=== PATIENT | male | born 1970 | race Caucasian/White ===

== ENCOUNTER 2020-01-15 15:54 | Outpatient (CLI) | payer OTHER, SELFPAY ==
--- NOTE | ~2020-01-15 | XR_ITS ---
EXAMINATION: XR chest 2V DATE: 01/15/2020 16:26 INDICATION: Midsternal chest pain. Shortness of breath. TECHNIQUE: Frontal and lateral views of the chest were obtained. COMPARISON: Chest 2 views 12/13/2016 FINDINGS: There is mild scarring at the lung apices. No pleural effusion or pneumothorax. The heart s ize is normal. There is mild chronic anterior wedging of multiple midthoracic vertebral bodies. IMPRESSION: 1. Mild scarring at the lung apices. Reviewed, dictated and finalized at location A. SERVICE TECHNICIAN
[2020-01-15 16:20] LABS: Basophils Absolute Auto 0.07 K/mm3 (0.00-0.10); Basophils Percent Auto 0.8 % (0.0-1.0); Eosinophils Absolute Auto 0.06 K/mm3 (0.02-0.50); Eosinophils Percent Auto 0.7 % (1.0-6.0); Hemoglobin 14.7 g/dL (14.0-18.0); Immature Granulocyte Absolute 0.02 K/mm3 (0.00-0.00); Immature Granulocyte Percent A 0.2 % (0.0-0.0); Lymphocytes Absolute Auto 2.53 K/mm3 (1.10-4.50); Lymphocytes Percent Auto 30.4 % (18.0-42.0); Mean Corpuscular HGB Conc 34.2 g/dL (32.0-36.0); Mean Corpuscular Hemoglobin 30.8 pg (27.0-31.0); Mean Corpuscular Volume 90.1 fL (78.0-102.0); Mean Platelet Volume 9.5 fl (8.7-11.0); Monocytes Absolute Auto 0.66 K/mm3 (0.10-0.90); Monocytes Percent Auto 7.9 % (2.0-11.0); Platelet Count Result 308 K/mm3 (150-420); Red Blood Count 4.77 M/mm3 (4.70-6.10); Red Cell Distribution Width 12.2 % (11.6-14.4); White Blood Count 8.3 K/mm3 (4.8-10.8)
[2020-01-15 16:22] LABS: Add Urine Microscopic? YES; Appearance Urine Clear (Clear); Bilirubin Urine 1+ (Negative); Blood Urine Negative (Negative); Color Urine Yellow (Yellow); Glucose Urine UA Negative (Negative); Ketones Urine Negative (Negative); Leukocyte Esterase Ur Negative (Negative); Nitrate Urine Negative (Negative); Protein Urine Negative (Negative); Specific Grav Ur >= 1.030 (1.010-1.020); Urobilinogen Urine 0.2 mg/dL (0.2-1.0); pH Urine 5.5 (5.0-8.0)
[2020-01-15 16:27] LABS: Bacteria Urine Trace /hpf; Mucus Urine Moderate /lpf; RBC Urine None seen /hpf (0-2); Squamous Epithelial Cell Urine Rare /hpf (Few); WBC Urine None seen /hpf (0-3)
[2020-01-15 16:35] LABS: D Dimer 0.19 mg/L (0.19-0.50)
[2020-01-15 16:45] LABS: Alanine Aminotransferase 21 U/L (16-63); Albumin Level 3.9 g/dL (3.4-5.0); Alkaline Phosphatase 72 U/L (46-116); Anion Gap 12.1 mmol/L (7-16); Aspartate Amino Transferase 14 U/L (15-37); Bilirubin,Total 0.4 mg/dL (0.00-1.00); Blood Urea Nitrogen 14 mg/dL (7-18); Calcium 8.3 mg/dL (8.5-10.1); Carbon Dioxide 30 mmol/L (21-32); Chloride 104 mmol/L (98-108); Creatine Kinase 260 U/L (39-308); Estimated Glomerular Filt Rate > 60; Glucose 110 mg/dL (70-99); Osmolality Calculated 295 mOsm/kg (285-295); Potassium 4.1 mmol/L (3.5-5.1); Sodium 142 mmol/L (136-145); Thyroid Stimulating Hormone 0.83 uIU/mL (0.36-3.74); Total Protein 6.9 g/dL (6.4-8.2)
[2020-01-15 17:01] LABS: Troponin I < 0.02 ng/mL (0.00-0.056)
[2020-01-15 17:02] LABS: CRP < 0.2 mg/dL (0.0-0.9)
[2020-01-15 18:04] LABS: Erythrocyte Sedimentation Rate 2 mm/hr (0-15)
== END 2020-01-15 15:55 | disposition home or self-care (01) ==
LOC: CHSLAB 15:58
PROVIDERS: PCP Family Medicine; Visit Provider Family Medicine
DX: R21 Rash and other nonspecific skin eruption (principal); R53.83 Other fatigue; R07.9 Chest pain, unspecified
CPT/HCPCS: 36415; 71046; 80053; 81001; 82550; 82553; 84443; 84484; 85025; 85380; 85652; 86038; 86140

== ENCOUNTER 2020-04-15 09:59 | Outpatient (CLI) | payer OTHER, SELFPAY ==
--- NOTE | ~2020-04-15 | US_ITS ---
US scrotum INDICATION: Right testicular swelling. Intermittent bilateral testicular pain. TECHNIQUE: Testicular sonogram utilizing grayscale and color Doppler FINDINGS: The testes are normal in size and appearance. No focal lesions are seen. The right testes measures 5 x 3.3 x 2.1 cm centimeters, and the left testis measures 5.2 x 2.7 x 2.5 cm cm. There is n ormal vascular flow to both testes. There are left epididymal cysts, largest measuring 4-5 mm. There is no varicocele or hydrocele. IMPRESSION: 1. Small left epididymal cysts, largest measuring 4-5 mm. Reviewed, dictated and finalized at location A.
--- NOTE | ~2020-04-15 | US_ITS ---
EXAMINATION: US soft tissue pelvic DATE: 04/15/2020 11:12 INDICATION: Left inguinal hernia. Left groin pain. TECHNIQUE: Multiple grayscale and Doppler ultrasound images of the abdomen were obtained. COMPARISON: None FINDINGS: There is a left inguinal hernia medial to the epigastric artery containing fat. IMPRESSION: 1. Direct left inguinal hernia containing fat. Reviewed, dictated and finalized at location A.
== END 2020-04-15 10:00 | disposition home or self-care (01) ==
PROVIDERS: PCP Family Medicine; Visit Provider Family Medicine
DX: K40.90 Unilateral inguinal hernia, without obstruction or gangrene, not specified as recurrent (principal); N50.811 Right testicular pain
CPT/HCPCS: 76857; 76870

== ENCOUNTER 2022-04-14 19:01 | Emergency (ER) | payer OTHER, SELFPAY ==
--- NOTE | ~2022-04-14 | CT_ITS ---
EXAMINATION: CT brain wo con INDICATION: Headache COMPARISON: None TECHNIQUE: Standard unenhanced head CT. The dose-length product (DLP) was 681.00 mGy-cm. The mA was a djusted according to patient size. Iterative reconstruction technique was employed. FINDINGS: There is no intracranial hemorrhage, acute infarction, or abnormal mass lesion. The ventric les are normal. There is no abnormal mass effect or midline shift. The cruz-white matter differentiat ion is normal. The basal cisterns are patent. The orbits are normal. There is moderate mucosal thicke josefina of the paranasal sinuses. IMPRESSION: 1. No acute intracranial abnormality. 2. Sinus disease. Reviewed, dictated and finalized at location F.
--- NOTE | ~2022-04-14 | XR_ITS ---
EXAMINATION: XR chest 1V portable INDICATION: Shortness of breath, cough TECHNIQUE: Portable AP chest at 2029 hours COMPARISON: 01/15/2020 FINDINGS: There is mild scarring of the lung apices. The lungs are free of acute opacities. There is no pleural effusion or pneumothorax. The cardiomediastinal silhouette is normal. IMPRESSION: 1. No acute cardiopulmonary abnormality. Reviewed, dictated and finalized at location F.
[2022-04-14 19:31] VITALS: BP 125/88; PULSE 97; RESP 17; TEMP 36.4; O2SAT 97
--- NOTE | 2022-04-14 20:04 | ECG_ITS ---
Measurements Intervals [place] Rate: 96 P: 78 DC: 155 QRS: 83 QRSD: 90 T: 72 QT: 345 QTc: 438 Interpretive Statements SINUS RHYTHM NO PREVIOUS ECG AVAILABLE FOR COMPARISON Electronically Signed On 04-14-2022 21:45:42 CDT by Fredrick Alfonso M.D.
[2022-04-14] MEDS: IPRATROPIUM 0.5 MG/ALBUTEROL SULFATE 2.5 MG AMPUL.NEB 3 ML INHALATION (20:18)
[2022-04-14 20:20] VITALS: PULSE 100; RESP 24; O2SAT 100
[2022-04-14 20:22] LABS: Base Excess ABG 2.9 mmol/L (0-2); Oxygen Content ABG 18.2 %vol (16.0-22.0); Oxygen Saturation ABG 97.5 % (95-97); Oxyhemoglobin 96.2 % (94-100); PCO2 ABG 34.8 mmHg (35-45); PO2 ABG 98.2 mmHg (80-90); Total Hemoglobin 13.4 g/dL (12.0-18.0); pH ABG 7.49 (7.35-7.45)
[2022-04-14 20:24] LABS: Device ROOM AIR; Modified Allen's Test Pass; Site Drawn LEFT RADIAL
[2022-04-14 20:25] LABS: Basophils Absolute Auto 0.05 K/mm3 (0.00-0.10); Basophils Percent Auto 0.4 % (0.0-1.0); Eosinophils Absolute Auto 0.14 K/mm3 (0.02-0.50); Hematocrit 38.2 % (40.0-54.0); Hemoglobin 12.7 g/dL (14.0-18.0); Immature Granulocyte Absolute 0.04 K/mm3 (0.00-0.00); Immature Granulocyte Percent A 0.3 % (0.0-0.0); Lymphocytes Absolute Auto 2.44 K/mm3 (1.10-4.50); Mean Corpuscular HGB Conc 33.2 g/dL (32.0-36.0); Mean Corpuscular Hemoglobin 30.4 pg (27.0-31.0); Mean Corpuscular Volume 91.4 fL (78.0-102.0); Mean Platelet Volume 9.6 fl (8.7-11.0); Monocytes Absolute Auto 1.32 K/mm3 (0.10-0.90); Monocytes Percent Auto 9.7 % (2.0-11.0); Neutrophils Absolute Auto 9.6 K/mm3 (1.7-7.2); Neutrophils Percent Auto 70.6 % (50.0-70.0); Platelet Count Result 317 K/mm3 (150-420); Red Blood Count 4.18 M/mm3 (4.70-6.10); Red Cell Distribution Width 12.7 % (11.6-14.4); White Blood Count 13.6 K/mm3 (4.8-10.8)
--- NOTE | 2022-04-14 20:29 | PC.NURSE ---
covid nasal swab sent to lab
[2022-04-14] MEDS: KETOROLAC 30 MG/ML VIAL (*BKC) IM (20:31)
[2022-04-14] MEDS: methylPREDNISolone SOD SUCC 125 MG VIAL IV PUSH (20:32)
[2022-04-14] MEDS: SODIUM CHLORIDE 0.9% IV 500 ML 999 ML IV CONT (20:32)
[2022-04-14 20:43] LABS: Lactic Acid Reflex 0.6 mmol/L (0.4-2.0)
[2022-04-14 20:52] LABS: Alanine Aminotransferase 18 U/L (16-63); Albumin Level 3.4 g/dL (3.4-5.0); Alkaline Phosphatase 107 U/L (46-116); Anion Gap 6 mmol/L (8-16); Aspartate Amino Transferase 11 U/L (15-37); Bilirubin,Total 0.5 mg/dL (0.00-1.00); Blood Urea Nitrogen 14 mg/dL (7-18); Calcium 8.2 mg/dL (8.5-10.1); Carbon Dioxide 27 mmol/L (21-32); Chloride 105 mmol/L (98-108); Estimated CRCL calculation 94 ml/min; Estimated Glomerular Filt Rate > 60; Glucose 132 mg/dL (70-99); Osmolality Calculated 288 mOsm/kg (285-295); Potassium 3.5 mmol/L (3.5-5.1); Sodium 138 mmol/L (136-145); Total Protein 6.4 g/dL (6.4-8.2); Troponin I 4.9 ng/L (0.00-60.4)
[2022-04-14 20:56] LABS: Ethanol < 3 mg/dL (0-6)
[2022-04-14 21:03] VITALS: BP 125/88; PULSE 98; RESP 16; O2SAT 98
[2022-04-14 21:13] LABS: Influenza A QL RT-PCR Negative (Negative); Influenza B QL RT-PCR Negative (Negative); SARS-CoV-2 RNA PCR Negative (Negative)
[2022-04-14 22:00] LABS: Add Urine Microscopic? NO; Appearance Urine Clear (Clear); Bilirubin Urine Negative (Negative); Blood Urine Negative (Negative); Color Urine Yellow (Yellow); Glucose Urine UA Negative (Negative); Ketones Urine Negative (Negative); Leukocyte Esterase Ur Negative (Negative); Nitrate Urine Negative (Negative); Protein Urine Negative (Negative); Specific Grav Ur 1.015 (1.010-1.020)
[2022-04-14 22:07] LABS: Amphetamine Screen Urine Positive (Negative); Barbiturate Screen Urine Negative (Negative); Benzodiazepines Screen Urine Negative (Negative); Cannabinoid Screen Urine Negative (Negative); Cocaine Screen Urine Negative (Negative); Methadone Screen Urine Negative (Negative); Opiate Screen Urine Negative (Negative); Phencyclidine Screen Urine Negative (Negative)
--- NOTE | 2022-04-14 22:17 | ED.HA ---
HPI - Headache General Chief Complaint: Headache Stated Complaint: swelling in face,sores on body Time Seen by Provider: 04/14/22 19:05 Source: patient and RN notes reviewed Mode of arrival: ambulatory Limitations: no limitations History of Present Illness MD elicited complaint: headache Onset (ago): day(s) (2) Onset description: gradually Location: generalized Severity: mild Pain scale (0-10): 5 Quality & Timing: aching and dull Exacerbating factors: none Relieving factors: nothing Associated symptoms: cough Treatments prior to arrival: none Related Data Allergies Allergy/AdvReac Type Severity Reaction Status Date / Time No Known Allergies Allergy Verified 04/14/22 19:30 Review of Systems Review of Systems: All systems reviewed & are unremarkable except as noted in HPI and below Constitutional: Constitutional: Reports no additional constitutional complaints Eyes: Eyes: Reports no additional eye complaints ENT: Reports system reviewed and no additional complaints, except as documented Cardiovascular: Cardiovascular: Reports no additional cardiovascular complaints Respiratory: Respiratory: Reports no additional respiratory complaints Gastrointestinal: Gastrointestinal: Reports no additional gastrointestinal complaints Musculoskeletal: Musculoskeletal: Reports no additional musculoskeletal complaints Integumentary/Breasts: Skin/Breast: Reports system reviewed and no additional complaints, except as docu Neurologic: Reports headache(s) Psychiatric: Psychiatric: Reports no additional psychiatric complaints Endocrine: Endocrine: Reports no additional endocrine complaints Hematologic/Lymphatic: Hematologic/Lymphatic: Reports no additional hematologic/lymphatic complaints Allergic/Immunologic: Allergic/Immunologic: Reports no additional allergic/immunologic complaints PMFSH Past Medical History Medical History Bronchitis Headache Sinusitis Viral syndrome Exam Const: General: no acute distress Nutritional Appearance: well nourished Orientation/consciousness: patient oriented x3 Limitations: no limitations HENMT: Head: normal to inspection Ears: external ears normal, TM's normal bilaterally and EAC's normal General nose exam: Normal external nose present and Normal nares present Face and sinus: normal facial exam and sinus tenderness Mouth: Yes Normal oral and palatal mucosa present and Yes moist mucous membranes Teeth and gingiva: dentition normal Throat: posterior oropharynx normal Eyes: Conjunctivae: conjunctivae normal Pupils: Equal, round and reactive pupils present EOM: EOMs intact bilaterally Neck: Neck: normal visual inspection, no lymphadenopathy and no meningeal signs Chest: Chest palpation & inspection: normal inspection of the chest Resp: Effort & Inspection: normal respiratory effort Auscultation: rhonchi Cardio: Rate: regular rate Rhythm: regular rhythm GI: GI Palp: Yes Soft to palpation and No Tenderness to palpation present (GI) Auscultation: normal bowel sounds : General: Yes bladder normal to palpation and Yes no CVA tenderness Back/Spine/Pelvis: Back: no CVA tenderness Skin: General skin exam: normal color Rashes: no rashes Wounds: no wounds Neuro: General: patient oriented x3, moves all extremities, no meningeal signs, no focal motor deficits and CN's II-XI intact bilaterally Cranial nerves: Yes Equal, round and reactive pupils present and Yes Nystagmus not present Speech: normal speech Gait exam (Neuro): Normal gait present Extrem: General: normal to inspection and no pedal edema Psych: Mental Status: mental status grossly normal Affect: normal affect Attitude: cooperative Course Course Emergency Course: Pt was stable in the ED, less painful and no acute SOB. Reevaluation(s) Reevaluation #1: VSS Date: 04/14/22 Time: 20:01 Vital Signs Vital signs: Vital Signs Temperature 36.4 C 06
[2022-04-14 23:14] VITALS: BP 125/93; PULSE 98; RESP 15; TEMP 36.6; O2SAT 97
== END 2022-04-14 23:16 | disposition home or self-care (01) ==
PROVIDERS: Emergency Provider Emergency Medicine
DX: R51.9 Headache, unspecified (principal); J32.9 Chronic sinusitis, unspecified; B34.9 Viral infection, unspecified; J40 Bronchitis, not specified as acute or chronic; Z20.822 Contact with and (suspected) exposure to COVID-19
CPT/HCPCS: 36415; 36600; 70450; 71045; 80053; 80307; 81003; 82805; 83605; 84484; 85025; 87502; 93005; 94640; 96361; 96365; 96372; 96375; 99284; C9803; J0696; J1885; J2930; J7040; U0003; U0005

== ENCOUNTER 2022-07-05 02:24 | Emergency (ER) | payer SELFPAY ==
[2022-07-05] VITALS (15 sets, daily range): BP systolic 99–110; BP diastolic 65–81; PULSE 75–92; RESP 12–18; TEMP 36.4; O2SAT 96–100
--- NOTE | ~2022-07-05 | XR_ITS ---
EXAMINATION: XR chest 1V portable DATE: 07/05/2022 03:14 INDICATION: Chest pain. TECHNIQUE: A single frontal view of the chest was obtained. COMPARISON: Chest single view 04/14/2022 FINDINGS: There is mild scarring in the upper lobes. No pleural effusion or pneumothorax. The heart s ize is normal. IMPRESSION: 1. Stable mild scarring in the upper lobes. Reviewed, dictated and finalized at location A.
--- NOTE | 2022-07-05 02:26 | ECG_ITS ---
Measurements Intervals [place] Rate: 86 P: 61 VA: 146 QRS: 82 QRSD: 102 T: 56 QT: 370 QTc: 443 Interpretive Statements SINUS RHYTHM NORMAL ECG COMPARED TO ECG 04/14/2022 20:14:33 NO SIGNIFICANT CHANGES Electronically Signed On 07-05-2022 16:07:16 CDT by Alo Vaughn M.D.
[2022-07-05] MEDS: SODIUM CHLORIDE 0.9% IV 500 ML 999 ML IV CONT (03:23)
[2022-07-05] MEDS: ASPIRIN 325 MG ENTERIC TABLET PO (03:24)
[2022-07-05] MEDS: ACETAMINOPHEN 325 MG TABLET 650 MG PO (03:24)
[2022-07-05 03:27] LABS: Basophils Absolute Auto 0.06 K/mm3 (0.00-0.10); Basophils Percent Auto 0.5 % (0.0-1.0); Eosinophils Absolute Auto 0.15 K/mm3 (0.02-0.50); Eosinophils Percent Auto 1.2 % (1.0-6.0); Hematocrit 37.2 % (40.0-54.0); Hemoglobin 12.4 g/dL (14.0-18.0); Immature Granulocyte Absolute 0.03 K/mm3 (0.00-0.00); Immature Granulocyte Percent A 0.2 % (0.0-0.0); Lymphocytes Absolute Auto 2.57 K/mm3 (1.10-4.50); Lymphocytes Percent Auto 21.3 % (18.0-42.0); Mean Corpuscular HGB Conc 33.3 g/dL (32.0-36.0); Mean Corpuscular Hemoglobin 30.2 pg (27.0-31.0); Mean Corpuscular Volume 90.5 fL (78.0-102.0); Mean Platelet Volume 9.8 fl (8.7-11.0); Monocytes Absolute Auto 1.19 K/mm3 (0.10-0.90); Monocytes Percent Auto 9.9 % (2.0-11.0); Neutrophils Absolute Auto 8.1 K/mm3 (1.7-7.2); Neutrophils Percent Auto 66.9 % (50.0-70.0); Platelet Count Result 286 K/mm3 (150-420); Red Blood Count 4.11 M/mm3 (4.70-6.10); Red Cell Distribution Width 13.1 % (11.6-14.4); White Blood Count 12.1 K/mm3 (4.8-10.8)
[2022-07-05 03:44] LABS: Alanine Aminotransferase 19 U/L (16-63); Albumin Level 3.5 g/dL (3.4-5.0); Alkaline Phosphatase 107 U/L (46-116); Anion Gap 6 mmol/L (8-16); Aspartate Amino Transferase 13 U/L (15-37); Bilirubin,Total 0.2 mg/dL (0.00-1.00); Blood Urea Nitrogen 9 mg/dL (7-18); Calcium 8.3 mg/dL (8.5-10.1); Carbon Dioxide 27 mmol/L (21-32); Chloride 105 mmol/L (98-108); Estimated Glomerular Filt Rate > 60; Glucose 123 mg/dL (70-99); Osmolality Calculated 285 mOsm/kg (285-295); Potassium 3.5 mmol/L (3.5-5.1); Sodium 138 mmol/L (136-145); Total Protein 6.2 g/dL (6.4-8.2); Troponin I 4.3 ng/L (0.00-60.4)
[2022-07-05 03:45] LABS: Lactic Acid Reflex 0.6 mmol/L (0.4-2.0)
--- NOTE | 2022-07-05 04:20 | ED.GENADULT ---
[facility] - General Adult General Chief complaint: Extremity Problem,Nontraumatic Stated complaint: chest pain Time Seen by Provider: 07/05/22 02:28 Source: patient and RN notes reviewed Mode of arrival: ambulatory Limitations: no limitations History of Present Illness MD complaint: chest pain Onset (ago): hour(s) (4) Location: chest Radiation: non-radiation Severity: mild Severity scale (1-10): 5 Quality: aching and dull Pain Consistency: constant Relieving factors: none Exacerbating factors: none Associated symptoms: chest pain Related Data Home Medications Medication Instructions Recorded Confirmed No Home Medications 07/05/22 07/05/22 Allergies Allergy/AdvReac Type Severity Reaction Status Date / Time No Known Allergies Allergy Verified 07/05/22 02:33 Review of Systems Review of Systems: All systems reviewed & are unremarkable except as noted in HPI and below Constitutional: Constitutional: Reports no additional constitutional complaints Eyes: Eyes: Reports no additional eye complaints ENT: Reports system reviewed and no additional complaints, except as documented Cardiovascular: Cardiovascular: Reports chest pain Respiratory: Respiratory: Reports no additional respiratory complaints Gastrointestinal: Gastrointestinal: Reports no additional gastrointestinal complaints Musculoskeletal: Musculoskeletal: Reports no additional musculoskeletal complaints Integumentary/Breasts: Skin/Breast: Reports system reviewed and no additional complaints, except as docu Neurologic: Reports system reviewed and no additional complaints, except as documented Psychiatric: Psychiatric: Reports no additional psychiatric complaints Endocrine: Endocrine: Reports no additional endocrine complaints Hematologic/Lymphatic: Hematologic/Lymphatic: Reports no additional hematologic/lymphatic complaints Allergic/Immunologic: Allergic/Immunologic: Reports no additional allergic/immunologic complaints PMFSH Past Medical History Medical History (Updated 07/11/22 @ 08:24 by Keith Farnsworth MD) Bronchitis Chest pain Headache Sinusitis Viral syndrome Exam Const: General: healthy appearing and no acute distress Nutritional Appearance: well nourished Orientation/consciousness: patient oriented x3 Limitations: no limitations HENMT: Head: normal to inspection Ears: external ears normal, TM's normal bilaterally and EAC's normal General nose exam: Normal external nose present and Normal nares present Face and sinus: normal facial exam and sinuses nontender Mouth: Yes Normal oral and palatal mucosa present and Yes moist mucous membranes Teeth and gingiva: dentition normal Throat: posterior oropharynx normal Eyes: Conjunctivae: conjunctivae normal Pupils: Equal, round and reactive pupils present EOM: EOMs intact bilaterally Neck: Neck: normal visual inspection, no lymphadenopathy and no meningeal signs Chest: Chest palpation & inspection: normal inspection of the chest Resp: Effort & Inspection: normal respiratory effort Auscultation: clear to auscultation bilaterally Cardio: Rate: regular rate Rhythm: regular rhythm GI: GI Palp: Yes Soft to palpation and No Tenderness to palpation present (GI) Auscultation: normal bowel sounds : General: Yes bladder normal to palpation and Yes no CVA tenderness Back/Spine/Pelvis: Back: no CVA tenderness Skin: General skin exam: normal color Rashes: no rashes Wounds: no wounds Neuro: General: patient oriented x3, moves all extremities, no meningeal signs, no focal motor deficits and CN's II-XI intact bilaterally Cranial nerves: Yes Equal, round and reactive pupils present and Yes Nystagmus not present Speech: normal speech Gait exam (Neuro): Normal gait present Extrem: General: normal to inspection and no pedal edema Psych: Mental Status: mental status grossly normal Affect: normal affect Attitude: cooperative Course Course Emergency Course: Pt was stable i
== END 2022-07-05 04:33 | disposition home or self-care (01) ==
PROVIDERS: Emergency Provider Emergency Medicine
DX: R07.9 Chest pain, unspecified (principal)
CPT/HCPCS: 36415; 71045; 80053; 83605; 84484; 85025; 93005; 96360; 99284; A9270; J7040

== ENCOUNTER 2025-07-29 20:32 | Emergency (ER) | payer OTHER, SELFPAY ==
[2025-07-29 20:32] VITALS: BP 126/79; PULSE 120; RESP 18; TEMP 37.2; O2SAT 98
[2025-07-29 20:53] LABS: Add Urine Microscopic? YES; Appearance Urine Clear (Clear); Glucose Urine UA Negative (Negative); Leukocyte Esterase Ur 3+ (Negative); Nitrate Urine Negative (Negative); Specific Grav Ur 1.015 (1.010-1.020)
--- OUTSIDE RECORDS SUMMARY | 2025-07-29 20:56 | XMS_ITS | Clinical Summary ---
Author Organization [facility] Address [address] [place] [id number] Care Team Providers Care Electrician Telephone Name Role Phone El Friedman MD Primary Care Provider [phone] Medications No known medications Family History Medical History Relation Comments Heart Disease Father Diabetes Mother Relation Status Comments Father Mother Social History Tobacco Use Types Packs/Day Years Used Date Smoking Tobacco: Every Day Smokeless Tobacco: Never Alcohol Use Standard Drinks/Week Comments Yes 0 (1 standard drink = 0.6 oz pur e alcohol) Sex and Gender Information Value Date Recorded Sex Assigned at Not on file 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 Gender Identity Not on file Sexual Orientation Not on file Last Filed Vital Signs Vital Sign Reading Time Taken Comments Blood Pressure 109/81 03/02/2020 11:45 AM CDT Pulse 109 03/02/2020 11:44 AM CDT Temperature 36.5 C (97.7 F) 03/02/2020 9:37 AM CDT Respiratory Rate 16 03/02/2020 11:44 AM CDT Oxygen Saturation 89% 03/02/2020 11:45 AM CDT Inhaled Oxygen Concentration - - Weight 68.1 kg (150 lb 3.2 oz) 03/02/2020 9:37 A M CDT Height 180.3 cm (5' 11) 03/02/2020 9:37 AM CDT Body Mass Index 20.95 03/02/2020 9:37 AM CDT Plan of Treatment Health Maintenance Due Date Last Done Comments Colorectal Cancer Screening Colonoscopy (10 Years) 1970 Annual Physical 1973 Hepatitis C 02/01/1988 DTaP, Tdap and Td Vaccines ( 1 - Tdap) 1989 Hepatitis B Vaccines (1 of 3 - 19+ 3-dose series) 1989 Pneumococcal Vaccine: 50+ Ye ars (1 of 2 - PCV) 1989 Zoster Vaccines (1 of 2) 02/01/2020 COVID-19 Vaccine (1 - 2023-2 5 season) 2025 Meningococcal B Vaccine Aged Out No l onger eligible based on patient's age to complete this topic Meningococcal Vaccine Aged Out No david lisa eligible based on patient's age to complete this topic RSV Immunizations Under 20 Months Aged Out No longer eligible based on patient's age to complete this topic Insurance [employer] OPEN [facility] Care Teams Electrician Telephone Relationship Specialty Start Date End Date El Friedman MD [address] [place] [address] PCP - General FAMILY PRACTICE 03/02/20
--- OUTSIDE RECORDS SUMMARY | 2025-07-29 20:56 | XMS_ITS | Clinical Summary ---
Author Organization [facility] Address [address] [place] [address] Phone Care Team Providers Care Textile Chemist Name Role Phone Garrett Truong MD Primary Care Provider [phone] Allergies No known active allergies Medications diclofenac 50 MG PO TBEC Take 50 mg by mouth 3 times daily. Active hydrocodone-acet aminophen 5-325 MG PO TABS Take 1-2 Tabs by mouth every 4 hours as needed for Pain. 20 Tab 0 05/04/2012 Active ibuprofen 200 MG PO TABS Take 2 Tabs by mouth every 6 hours as needed for Fever or Pain. 30 Tab 0 05/04/2012 Active hydrocodone-acet aminophen (NORCO) 10-325 MG PO TABS Take 1 Tab by mouth every 6 hours as needed for Pain. 30 Tab 0 09/13/2012 Active ibuprofen 800 MG PO TABS Take 1 Tab by mouth every 8 hours. 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 Gender Identity Not on file Sexual Orientation Not on file Last Filed Vital Signs Vital Sign Reading Time Taken Comments Blood Pressure 149/73 09/13/2012 8:45 PM CDT Pulse 74 09/13/2012 8:45 PM CDT Temperature 36.1 C (96.9 F) 09/13/2012 8:45 PM CDT Respiratory Rate 16 09/13/2012 8:45 PM CDT Oxygen Saturation 99% 09/13/2012 8:45 PM CDT Inhaled Oxygen Concentration - - Weight 74.9 kg (165 lb 2 oz) 09/13/2012 8:45 PM CDT Height 180.3 cm (5' 11) 09/13/2012 8:45 PM CDT Body Mass Index 23.03 09/13/2012 8:45 PM CDT Plan of Treatment Not on file Additional Health Concerns Infection Onset Date Last Indicated 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
--- NOTE | 2025-07-29 21:15 | ED.MALEGU ---
HPI - Male Genitourinary General Chief complaint: Urogenital-Male Stated complaint: burning w/ urination Time Seen by Provider: 07/29/25 20:39 Source: patient Mode of arrival: ambulatory Limitations: no limitations History of Present Illness HPI Narrative: 55 year old male presents to the Emergency Department complaining of dysuria. Onset 10 days ago. States had an inguinal hernia repaired 20 years ago. No having swelling and concerned about reoccurrence. He is having swelling that is to skin on distal shaft of penis past 7 days. MD Complaint: dysuria Onset (ago): day(s) (10) Duration: constant Location: penis Relieving factors: none Exacerbating factors: none Related Data Allergies Allergy/AdvReac Type Severity Reaction Status Date / Time No Known Allergies Allergy Verified 07/29/25 20:37 Review of Systems Review of Systems: All systems reviewed & are unremarkable except as noted in HPI and below Constitutional: Constitutional: Reports as per HPI, Denies chills and Denies fever(s) Eyes: Eyes: Reports as per HPI ENT: Reports system reviewed and no additional complaints, except as documented Cardiovascular: Cardiovascular: Reports as per HPI Respiratory: Respiratory: Reports as per HPI Gastrointestinal: Gastrointestinal: Reports as per HPI, Denies abdominal pain, Denies diarrhea, Denies nausea and Denies vomiting Genitourinary: Genitourinary: Reports no additional male genitourinary complaints, Reports as per HPI and Reports dysuria Musculoskeletal: Musculoskeletal: Reports no additional musculoskeletal complaints Integumentary/Breasts: Skin/Breast: Reports system reviewed and no additional complaints, except as docu Neurologic: Reports system reviewed and no additional complaints, except as documented Psychiatric: Psychiatric: Reports no additional psychiatric complaints Endocrine: Endocrine: Reports no additional endocrine complaints Hematologic/Lymphatic: Hematologic/Lymphatic: Reports no additional hematologic/lymphatic complaints Allergic/Immunologic: Allergic/Immunologic: Reports no additional allergic/immunologic complaints PMFSH Past Medical History Medical History Chest pain Bronchitis Viral syndrome Sinusitis Headache Exam Const: General: healthy appearing Nutritional Appearance: well nourished Limitations: no limitations HENMT: Head: normal to inspection Face/Nose/Sinus: Normal external nose present Face and sinus: normal facial exam Eyes: Conjunctivae: conjunctivae normal Pupils: Equal, round and reactive pupils present EOM: EOMs intact bilaterally Direct Ophthalmoscopy: no photophobia Neck: Neck: normal visual inspection Chest: Chest palpation & inspection: normal inspection of the chest Resp: Effort & Inspection: normal respiratory effort Cardio: Rate: regular rate GI: Inspection: non-distended GI Palp: Yes Soft to palpation and No Tenderness to palpation present (GI) : General: Yes no CVA tenderness Penis: Yes circumcised Scrotum: scrotum normal and no scrotal swelling Testes: Testes normal Other: swelling to skin distal shaft of penis Back/Spine/Pelvis: Back: no CVA tenderness Skin: General skin exam: normal color Rashes: no rashes Neuro: General: patient oriented x3 Speech: normal speech Gait exam (Neuro): Normal gait present Other: grossly normal Extrem: General: normal to inspection Psych: Mental Status: mental status grossly normal Course Course Emergency Course: 55 y/o male presents to the ED c/o dysuria for 10 days and swelling to distal penile shaft skin swelling for 7 days PE: edema to skin distal shaft of penis UA: >75 wbc, 3+ LE, 1+ bacteria, 6-10 rbc, 1+ blood *reviewed and discussed results with patient. Discussed further management. patient voices understanding and agreement. Vital Signs Vital signs: Vital Signs Temperature 37.2 C 07/29/25 20:32 Pulse Rate 120 H 07/29/25 20:32 Respiratory Rate 18 07/29/25 20:32 Blood Pressure 126/79 07/29/25 20:32 Pulse Oximetry 98 07/29/25 20:32 Oxygen Delivery Room Air 07/29/25 20:32 Temperature 37.2 C 07/29/25 20:32 Pulse Rate 120 H 07/29/25 20:32 Respiratory Rate 18 07/29/25 20:32 Blood Pressure 126/79 07/29/25 20:32 Pulse Oximetry 98 07/29/25 20:32 Oxygen Delivery Room Air 07/29/25 20:32 MDM - Male Genitourinary Lab Data Labs: Lab Results 07/29/25 Range/Units 20:43 Urine Color Light yellow (Yellow) Urine Appearance Clear (Clear) Urine pH 7.0 (5.0-8.0) Ur Specific [place] 1.015 (1.010-1.020) Urine Protein 1+ H (Negative) Urine Glucose (UA) Negative (Negative) Urine Ketones Negative (Negative) Ur Blood (Man) 1+ H (Negative) Urine Nitrate Negative (Negative) Urine Bilirubin Negative (Negative) Urine Urobilinogen 1.0 (0.2-1.0) mg/dL Ur Leukocyte Esterase 3+ H (Negative) Urine RBC 6-10 H (0-2) /hpf Urine WBC >75 H (0-3) /hpf Ur Squamous Epith Cells None seen (Few) /hpf Urine Bacteria 1+ H (None) /hpf Discharge Plan Discharge Clinical Impression: Urinary tract infection, Posthitis Patient Disposition: Home Condition: Stable Instructions: Antibiotic Form, Urinary Tract Infection in Men (ED), Balanoposthitis (ED) Additional Instructions: Keep penis clean with soap and water daily Take medication orally as prescribed Use cream as prescribed Follow up Primary Care Provider Patient Language: Croatian Prescriptions: New sulfamethoxazole-trimethoprim [Bactrim DS] 800-160 mg tablet 1 tablet PO Q12H Qty: 20 0RF clotrimazole 1 % cream 1 applic topical BID Qty: 45 0RF phenazopyridine [Pyridium] 200 mg tablet 200 mg PO TID PRN (Reason: pain) Qty: 10 0RF Follow-up/Referrals: Juany,Sonya Melton APN [Primary Care Provider, Unknown] Time of Disposition: 21:27
[2025-07-29] MEDS: SULFAMETHOXAZOLE/TRIMETHOPRIM 800/160 MG DS TABLET 1 TAB PO (21:30)
[2025-07-29] MEDS: PHENAZOPYRIDINE HCL 100 MG TABLET 200 MG PO (21:30)
[2025-07-29 21:41] VITALS: BP 131/65; PULSE 100; RESP 20; TEMP 36.6; O2SAT 98
== END 2025-07-29 21:41 | disposition home or self-care (01) ==
PROVIDERS: Emergency Provider Emergency Medicine; PCP Nurse Practitioner Family
DX: N39.0 Urinary tract infection, site not specified (principal); N47.7 Other inflammatory diseases of prepuce
CPT/HCPCS: 81001; 99283; A9270